=== PATIENT | female | born 1985 | race Caucasian/White ===

== ENCOUNTER 2019-06-03 08:26 | Inpatient (IN) | payer BC ==
[~2019-06-03] VITALS: Ht 160 cm; Wt 75.5 kg
[2019-06-03] VITALS (53 sets, daily range): BP systolic 87–142; BP diastolic 47–80; PULSE 71–136; TEMP 97.7–98.2
[~2019-06-03 08:26] MED LIST: FERROUS SULFATE65 MG PO; MOTRIN 800800 MG/TAB PO; NORCO 325 MG-51 TAB PO; PRENATAL1 TA1 PO; STOOL SOFTENER100 M2 PO
--- NOTE | 2019-06-03 08:40 | NUR ---
PATIENT HERE FOR INDUCTION. PATIENT CHANGED INTO GOWN. PATIENT OF [facility]. VITALS OBTAINED. PATIENT DENIES LEAKING OF FLUID, BLEEDING OR CONTRACTIONS. ASSEMENT COMPLETE, IV STARTED, PATIENT HERE WITH AND MOTHER
[2019-06-03 09:24] LABS: BASO % 0.4 % (0.0-2.0); EOS # 0.1 (0.0-0.7); EOS % 0.7 % (0-4.0); GRAN # 6.5 (1.4-6.5); GRAN % 71.8 % (42.2-75.2); HEMATOCRIT 37.2 % (37.0-47.0); HEMOGLOBIN 12.6 g/dl (12.5-16.0); LYMPH # 1.8 (1.2-3.4); MEAN CELL VOLUME 85 fl (80.0-100.0); MEAN CORPUSCULAR HEMOGLOBIN 29 pg (27.0-31.0); MEAN CORPUSCULAR HGB CONC 34 g/dl (33.0-37.0); MEAN PLATELET VOLUME 11.9 fl (7.4-10.4); MONO # 0.6 (0.1-0.6); MONO % 6.7 % (1.7-9.3); PLATELET COUNT 184 K/mm3 (130-400); RED BLOOD COUNT 4.39 M/mm3 (4.10-5.30); REDCELL DISTRIBUTION WIDTH-CV 14.1 % (11.5-14.5)
--- NOTE | 2019-06-03 16:40 | NUR ---
PATIENT STARTED PUSHING INTERMITTENTLY WITH EVERY CONTRACTION AT THIS TIME DR COOK ON UNIT REVIEWING [facility] 1640- DELIVERY. DR COOK IN PATIENTS ROOM AT 1805. VAC ATTEMPTED AT THIS TIME WITH [address] COOK RECCOMENDED SECTION AT 1815. FRANCO INSERTED IN BLADDER, PREP FOR OPERATING ROOM. PATIENT WHEELED TO OPERATING ROOM AT 1825. VIABLE FEMALE DELIVERED AT 1835.
--- NOTE | 2019-06-04 05:00 | NUR ---
Pt up to the bathroom with standby assist and without complications. Gannon removed. Mikayla-care done. Assisted pt back to the bed.
[2019-06-04 08:00] VITALS: BP 90/50; PULSE 70; TEMP 97
[2019-06-04 12:00] VITALS: BP 104/84; PULSE 94; TEMP 98
[2019-06-04 16:00] VITALS: BP 114/66; PULSE 90; TEMP 98
[2019-06-04 20:45] VITALS: BP 91/50; PULSE 83; TEMP 97.5
[2019-06-05 07:35] VITALS: BP 124/68; PULSE 78; TEMP 98.1
[2019-06-05] MEDS ORDERED: MOTRIN 800800 MG/TAB PO (09:36)
[2019-06-05] MEDS ORDERED: PERCOCET 325 MG1 TA2 PO (09:37)
== END 2019-06-05 11:47 | disposition home or self-care (01) | DRG 788 ==
LOC: LDR 08:26 → OB 22:08
PROVIDERS: ADMIT Obstetrics & Gynecology
PROC: 10D00Z1 Extraction of Products of Conception, Low, Open Approach (ICD-10-PCS; principal; 2019-06-03)
PROC: 3E033VJ Introduction of Other Hormone into Peripheral Vein, Percutaneous Approach (ICD-10-PCS; 2019-06-03)
DX: O62.1 Secondary uterine inertia (principal); O76 Abnormality in fetal heart rate and rhythm complicating labor and delivery; Z37.0 Single live birth; Z3A.39 39 weeks gestation of pregnancy; O99.824 Streptococcus B carrier state complicating childbirth
CPT/HCPCS: J0690; J1885; J2270; J2370; J2400; J2405; J2540; J2590; J7120